=== PATIENT | female | born 1950 | race Two or more races ===

== ENCOUNTER 2021-01-16 14:12 | Emergency (ER) | payer MEDICARE, MEDICAID ==
[~2021-01-16] VITALS: Ht 162.6 cm; Wt 72.6 kg
[2021-01-16 14:29] VITALS: BP 151/85
[2021-01-16] MEDS ORDERED: TETANUS-DIPTH-ACEL PERTUSSIS 0.5ML SYR Tdap IM ONE (15:15)
== END 2021-01-16 15:47 | disposition home or self-care (01) ==
LOC: ER 14:12
DX: S61.210A Laceration without foreign body of right index finger without damage to nail, initial encounter (principal); W53.01XA Bitten by mouse, initial encounter; Y93.89 Activity, other specified; Y92.89 Other specified places as the place of occurrence of the external cause; Y99.8 Other external cause status
CPT/HCPCS: 90471; 90715